=== PATIENT | male | born 1970 | race Caucasian/White ===

== ENCOUNTER 2020-09-15 07:37 | Outpatient (CLI) | payer BC, SELFPAY ==
--- NOTE | 2020-11-03 10:32 | WPDHOMESLEEP ---
Sleep Study - Home Unattended Date of Study: 09/15/20 Ordering Provider: Kinga Hart PA-C Interpreting Physician: Mckenna Krishnamurthy MD Home Sleep Study Type: Apnea Link Air Height: 1.88 m Weight: 145.15 kg Body Mass Index: 41.1 Neck Circumference (inches): 19.5 [place]: 14 Reason for Sleep Study history of sleep apnea Sleep History Burt Barrera is a 49 year-old man who has a history of obstructive sleep apnea. His CPAP broke so he is currently not using it. In addition he has lost 50 lb. Is been many years since he had his initial sleep study so he needs to be re-evaluated. difficulty falling asleep at night, he wakes during the night and he has excessive daytime sleepiness. He frequently snores as frequently loud enough that others complain about it. He occasionally awakens at night with heartburn, belching or coughing. He rarely awakens from sleep feeling short of breath. He rarely has trouble sleeping with a cold, rarely wakes up gasping for breath at night. He occasionally has breathing problems at night observed by others. He occasionally sweats excessively at night. He rarely notices his heart pounding or beating irregularly at night. He occasionally falls asleep during the day, occasionally involuntarily, rarely while driving. He does not fall asleep while exerting physical effort. He does not have loss of muscle tone with strong emotion. He occasionally has daytime difficulties due to excessive sleepiness. He does not feel paralyzed on waking or falling asleep. He occasionally has vivid dreamlike scenes upon awakening or falling asleep. He rarely feels afraid to go to sleep. He rarely has nightmares. He occasionally remembers his dreams. He occasionally has racing thoughts. He rarely has feelings of sadness or depression. He occasionally feels anxious. He frequently has muscular tension, occasionally notices parts of his body jerking rarely kicks at night. He frequently has crawling and aching feelings in his legs and frequently has leg pain during the night. He rarely has morning jaw pain. He frequently grinds his teeth during sleep, frequently is bothered by pain during the day, frequently is awakened by pain at night, frequently wakes up feeling stiff in the morning with sore achy muscles and pain in the neck and spine. He has rarely has morning headaches. He has dizziness, fatigue, and concentration difficulties. Normal bedtime during the week is between 8:00 and 9:00 a.m., falling asleep sometimes immediately and every once in a while taking longer. He typically wakes 1-2 times during sleep, usually to go to the bathroom. He stays awake on average 10-15 minutes. He wakes between 3:00 to 4:00 p.m.. On weekends he goes to bed at the same time 8-9 p.m. but wakes later, 5-6 a.m.. He stays in bed only a few minutes. His sleep habits are different on weekends because he works midnights and he tries to revert back to have a normal life on the weekends. he does take naps. A short nap 10-15 minutes may be refreshing. He rarely feels refreshed when he wakes. He feels better in the evening compared to other times of day. Habits: Never smoked tobacco. Caffeine 1-2 cans per day. Alcohol 1-2 per month. No recreational drugs. [facility] Past Medical History Medical History (Updated 11/03/20 @ 10:59 by Mckenna Krishnamurthy MD) Bulging discs L4-L5 Hypercholesterolemia Hypertension Lower back injury 1998 Obstructive sleep apnea Type 2 diabetes mellitus with hyperglycemia Ventral hernia recurrent incisional hernia repair 06/11/2009, 05/27/2010, 02/03/2011 Surgical History Surgical History (Updated 11/03/20 @ 10:58 by Mckenna Krishnamurthy MD) History of ankle surgery Right ankle 1988 Left ankle 2001 History of appendectomy 1992 History of cervical spinal surgery C5-C6 anterior diskectomy and fusion 04/08/2020 History of colon surgery sigmoid resection 09/16/2008 Status post cholecystectomy 1992 Family H
[2020-11-03 11:15] VITALS: BMI 41.1
== END 2020-09-15 07:38 | disposition home or self-care (01) ==
LOC: ANHCSM 07:38
PROVIDERS: PCP Family Medicine; Visit Provider Physician Assistant
DX: G47.33 Obstructive sleep apnea (adult) (pediatric) (principal)
CPT/HCPCS: 95806

== ENCOUNTER 2020-09-23 12:50 | Outpatient (RCR) | payer BC, SELFPAY | END 2020-12-08 09:18 | disposition home or self-care (01) | LOC: ANHDMC 12:50 | PROVIDERS: PCP Family Medicine; Visit Provider Physician Assistant | DX: E11.65 Type 2 diabetes mellitus with hyperglycemia (principal); Z71.89 Other specified counseling | CPT/HCPCS: G0108 ==

== ENCOUNTER 2020-11-24 07:06 | Emergency (ER) | payer BC, SELFPAY ==
[2020-11-24] VITALS (32 sets, daily range): BP systolic 139–174; BP diastolic 89–110; PULSE 85–98; RESP 11–30; TEMP 36.4; O2SAT 95–99
--- NOTE | ~2020-11-24 | XR_ITS ---
EXAMINATION: XR chest 2V DATE: 11/24/2020 08:05 INDICATION: Shortness of breath. TECHNIQUE: Frontal and lateral views of the chest were obtained. COMPARISON: Chest 2 views 06/04/2019 FINDINGS: The chest demonstrates clear lungs without pneumonia, pleural effusion, or pneumothorax. Th e heart size is normal. There are changes of anterior fusion procedure in cervical spine. Surgical cl ips in the right upper quadrant are likely from cholecystectomy. IMPRESSION: 1. No acute cardiopulmonary disease. Reviewed, dictated and finalized at location A. CRITIC
--- NOTE | 2020-11-24 07:28 | ECG_ITS ---
Measurements Intervals [place] Rate: 96 P: 20 DE: 133 QRS: 10 QRSD: 132 T: 30 QT: 369 QTc: 468 Interpretive Statements SINUS RHYTHM VENTRICULAR PREMATURE COMPLEXES POSSIBLE LEFT ATRIAL ENLARGEMENT INCOMPLETE LEFT BUNDLE BRANCH BLOCK CONSIDER INFERIOR INFARCT, AGE INDETERMINATE ABNORMAL ECG Electronically Signed On 11-24-2020 7:56:56 BUYING INTERN by Carlo Lozada D.O.
--- NOTE | 2020-11-24 07:34 | ED.DIZZY ---
HPI - Dizziness General Chief Complaint: Dizziness Stated Complaint: sob, dizziness Time Seen by Provider: 11/24/20 07:16 Source: RN notes reviewed History of Present Illness HPI Narrative: Patient presents to emergency department from home for dizziness. Patient states that he had been working all night and been feeling fine states that he was driving home when again to feel dizzy as well as numbness around his lips his heart racing and shortness of breath. States he drove to the emergency department symptoms improved but then began to recur again and he came in to the emergency department for further evaluation he denies any fevers or chills vision changes chest pain abdominal pain nausea vomiting numbness or tingling of the extremities or any other symptoms. States he has been under increased stress at both work as well as home he denies any other symptoms at this time Related Data Allergies Allergy/AdvReac Type Severity Reaction Status Date / Time No Known Allergies Allergy Unknown Verified 11/24/20 07:21 Review of Systems Review of Systems: Narrative: Gen.: Denies fevers or chills Eyes: Denies eye pain or visual change ENT: Denies congestion Respiratory: Reports shortness of breath CV: Denies chest pain reports palpitations GI: Denies abdominal pain nausea, emesis or diarrhea denies burning, urgency, frequency or hematuria Musculoskeletal: Denies back pain or muscle pain Neuro: Denies tingling, weakness or focal weakness reports numbness around the lips and dizziness Skin: Denies rash Except as documented, all other systems reviewed and negative PMFSH Past Medical History Medical History Bulging discs L4-L5 Hypercholesterolemia Hypertension Lower back injury 1998 Obstructive sleep apnea Type 2 diabetes mellitus with hyperglycemia Ventral hernia recurrent incisional hernia repair 06/11/2009, 05/27/2010, 02/03/2011 Surgical History Surgical History (Updated 11/03/20 @ 10:58 by Mckenna Krishnamurthy MD) History of ankle surgery Right ankle 1987 Left ankle 2001 History of appendectomy 1992 History of cervical spinal surgery C5-C6 anterior diskectomy and fusion 04/08/2020 History of colon surgery sigmoid resection 09/16/2008 Status post cholecystectomy 1992 Family History Family History Other Diabetes mellitus Family history of alcoholism Family history of arthritis Family history of cardiovascular disease Family history of drug dependence Family history of hearing loss Family history of kidney disease Family history of malignant neoplasm Family history of obesity Hypertension Social History Social History (Updated 11/03/20 @ 11:00 by Mckenna Krishnamurthy MD) Social History: lives at home with his , works midnights. Smoking status: Never smoker Alcohol intake: current Drinks per week: 2 Substance use: never Gender identity (if verbalized by the patient): Male Exam Narrative: Exam Narrative: APPEARANCE: No acute distress, nontoxic, resting in bed EYES: EOMI, PERRL HEENT: Normocephalic, atraumatic, OMM RESPIRATORY: No respiratory distress Clear to auscultation bilaterally with no rhonchi wheezing or rales. CARDIOVASCULAR: Regular rate and rhythm without murmurs rubs or gallops. ABDOMINAL: Soft, nontender, nondistended, no rebound or guarding MUSCULOSKELETAl: Moves all extremities. No clubbing, cyanosis or edema. NEURO: Awake and alertx 4. Following commands, speech normal, no focal deficits muscle strength 5 out of 5 bilateral upper and lower extremities SKIN:: Warm, dry. No rashes lesions or abrasions PSYCHIATRIC: Normal affect/mood, Course Course Emergency Course: Patient given Ativan in ED symptoms are resolved at this time Discussed with patient results of workup and diagnosis. Discussed need for follow-up with primary care, proper use of m
[2020-11-24 07:43] LABS: Glucose Point of Care 325 (65-105)
[2020-11-24 08:12] LABS: Basophils Percent Auto 0.7 % (0.2-1.2); Eosinophils Absolute Auto 0.1 K/mm3 (0-0.3); Eosinophils Percent Auto 2.4 % (0-4.4); Hematocrit 45.7 % (42.0-52.0); Hemoglobin 16.1 g/dL (14.0-18.0); Immature Granulocyte Absolute 0.04 K/mm3 (0.00-0.031); Immature Granulocyte Percent A 0.7 % (0-0.5); Lymphocytes Absolute Auto 1.54 K/mm3 (0.9-3.2); Lymphocytes Percent Auto 28.2 % (18.3-44.2); Mean Corpuscular HGB Conc 35.2 g/dl (32-36); Mean Corpuscular Hemoglobin 28.8 pg (26-34); Mean Corpuscular Volume 81.8 fl (80-100); Mean Platelet Volume 10.9 fl (7.4-10.4); Monocytes Absolute Auto 0.4 K/mm3 (0.1-0.6); Monocytes Percent Auto 6.4 % (2.6-8.5); Neutrophils Absolute Auto 3.4 K/mm3 (1.3-6.7); Neutrophils Percent Auto 61.6 % (45.5-73.1); Platelet Count Result 151 k/mm3 (150-375); Red Blood Count 5.59 M/mm3 (4.6-6.20); Red Cell Distribution Width 13.9 % (11.5-14.5); White Blood Count 5.5 K/mm3 (4.5-10.0)
[2020-11-24 08:22] LABS: Prothrombin Time 13.5 Seconds (11.1-14.7)
[2020-11-24] MEDS: LORazepam INJ (*CRX) 2 MG/ML VIAL 0.5 MG IV PUSH (08:46)
[2020-11-24] MEDS: SODIUM CHLORIDE 0.9% IV 1,000 ML 999 ML IV CONT (08:46)
[2020-11-24 09:19] LABS: Anion Gap 12 mmol/L (8-16); Blood Urea Nitrogen 14 mg/dL (9-20); Carbon Dioxide 22 mmol/L (22-30); Chloride 105 mmol/L (98-107); Estimated CRCL calculation 168 ml/min; Estimated Glomerular Filt Rate > 60; Glucose 331 mg/dL (75-110); Potassium 4.2 mmol/L (3.4-5.0); Sodium 139 mmol/L (137-145)
[2020-11-24 09:30] LABS: Troponin I < 0.012 ng/mL (0.000-0.034)
[2020-11-24 11:41] LABS: Troponin I < 0.012 ng/mL (0.000-0.034)
== END 2020-11-24 12:03 | disposition home or self-care (01) ==
PROVIDERS: Emergency Provider Emergency Medicine; PCP Family Medicine
DX: R42 Dizziness and giddiness (principal); R00.2 Palpitations; F41.9 Anxiety disorder, unspecified; E78.00 Pure hypercholesterolemia, unspecified; I10 Essential (primary) hypertension; G47.33 Obstructive sleep apnea (adult) (pediatric); E11.9 Type 2 diabetes mellitus without complications; Z98.1 Arthrodesis status; Z90.49 Acquired absence of other specified parts of digestive tract; I49.3 Ventricular premature depolarization; I44.7 Left bundle-branch block, unspecified; R94.31 Abnormal electrocardiogram [ECG] [EKG]
CPT/HCPCS: 36415; 71046; 80048; 82948; 84484; 85025; 85610; 85730; 93005; 96374; 96375; 99284; J2060; J7030

== ENCOUNTER 2021-04-20 07:11 | Emergency (ER) | payer BC, SELFPAY ==
[2021-04-20] VITALS (17 sets, daily range): BP systolic 129–164; BP diastolic 73–98; PULSE 84–99; RESP 14–24; TEMP 36.7; O2SAT 89–98
--- NOTE | ~2021-04-20 | XR_ITS ---
EXAMINATION: XR chest 2V DATE: 04/20/2021 07:47 INDICATION: Chest pain TECHNIQUE: PA and lateral views of the chest are obtained. COMPARISON: 11/24/2020 FINDINGS: The lungs are free of acute opacities. There is no pleural effusion or pneumothorax. The ca rdiomediastinal silhouette is normal. There is mild thoracic spondylosis. Cholecystectomy clips are n oted. IMPRESSION: 1. No acute cardiopulmonary abnormality. Reviewed, dictated and finalized at location A.
--- NOTE | 2021-04-20 07:34 | ECG_ITS ---
Measurements Intervals [place] Rate: 90 P: 18 [place]: 152 QRS: 5 QRSD: 132 T: 39 QT: 390 QTc: 479 Interpretive Statements SINUS RHYTHM POSSIBLE LEFT ATRIAL ENLARGEMENT INTRAVENTRICULAR CONDUCTION DELAY CONSIDER INFERIOR INFARCT, AGE INDETERMINATE ABNORMAL ECG Electronically Signed On 04-20-2021 7:39:20 CDT by Carlo Lozada D.O.
[2021-04-20 07:45] LABS: Basophils Absolute Auto 0.1 K/mm3 (0.0-0.1); Basophils Percent Auto 1.2 % (0.2-1.2); Eosinophils Absolute Auto 0.1 K/mm3 (0-0.3); Eosinophils Percent Auto 2.5 % (0-4.4); Hematocrit 47.4 % (42.0-52.0); Hemoglobin 16.8 g/dL (14.0-18.0); Immature Granulocyte Absolute 0.02 K/mm3 (0.00-0.031); Immature Granulocyte Percent A 0.4 % (0-0.5); Lymphocytes Absolute Auto 1.86 K/mm3 (0.9-3.2); Lymphocytes Percent Auto 32.9 % (18.3-44.2); Mean Corpuscular HGB Conc 35.4 g/dl (32-36); Mean Corpuscular Hemoglobin 29.2 pg (26-34); Mean Corpuscular Volume 82.3 fl (80-100); Mean Platelet Volume 11.4 fl (7.4-10.4); Monocytes Absolute Auto 0.3 K/mm3 (0.1-0.6); Monocytes Percent Auto 5.5 % (2.6-8.5); Neutrophils Absolute Auto 3.3 K/mm3 (1.3-6.7); Neutrophils Percent Auto 57.5 % (45.5-73.1); Platelet Count Result 149 k/mm3 (150-375); Red Blood Count 5.76 M/mm3 (4.6-6.20); Red Cell Distribution Width 13.5 % (11.5-14.5); White Blood Count 5.7 K/mm3 (4.5-10.0)
[2021-04-20 08:03] LABS: Anion Gap 15 mmol/L (8-16); Blood Urea Nitrogen 16 mg/dL (9-20); Calcium 9.3 mg/dL (8.4-10.2); Carbon Dioxide 20 mmol/L (22-30); Chloride 97 mmol/L (98-107); Estimated Glomerular Filt Rate > 60; Glucose 423 mg/dL (75-110); Potassium 4.3 mmol/L (3.4-5.0); Sodium 132 mmol/L (137-145)
[2021-04-20] MEDS: ASPIRIN 81 MG CHEWABLE TABLET 324 MG PO (08:05)
[2021-04-20 08:06] LABS: Prothrombin Time 12.8 Seconds (11.1-14.7); Troponin I 0.015 ng/mL (0.000-0.034)
[2021-04-20 08:07] LABS: Partial Thromboplastin Time 29.8 SECONDS (22.3-36.8)
--- NOTE | 2021-04-20 08:09 | ED.CHESTPAIN ---
HPI - Chest Pain General Chief Complaint: Anxiety Stated Complaint: SOB Time Seen by Provider: 04/20/21 07:34 Source: patient Mode of arrival: ambulatory Limitations: no limitations History of Present Illness HPI narrative: Patient is a 50-year-old male complaining of I do not know if I am having an anxiety attack described as chest pain, left upper chest, left shoulder, 4 out of 10, described as discomfort, accompanied by cannot take a deep breath started prior to arrival after getting off work this morning while driving, states he worked the whole night. Patient denies any abdominal pain, nausea, vomiting, diaphoresis, fever or chills Related Data Allergies Allergy/AdvReac Type Severity Reaction Status Date / Time No Known Allergies Allergy Unknown Verified 04/20/21 07:23 Review of Systems Review of Systems: All systems reviewed & are unremarkable except as noted in HPI and below Constitutional: Constitutional: Denies body ache(s), Denies chills, Denies excessive sweating, Denies fatigue, Denies fever(s), Denies headache(s), Denies lethargy, Denies malaise, Denies weakness and Denies weight loss Eyes: Eyes: Denies blurry vision, Denies change in vision and Denies loss of vision ENT: Denies dizziness, Denies ear discharge, Denies headache(s), Denies lip swelling, Denies epistaxis, Denies nasal congestion, Denies neck pain, Denies throat swelling and Denies tongue swelling Cardiovascular: Cardiovascular: Denies diaphoresis, Denies rapid heart rate, Denies edema, Denies irregular heart rhythm, Denies lightheadedness, Denies palpitations and Denies dyspnea on exertion Respiratory: Respiratory: Denies chest congestion, Denies cough, Denies hemoptysis and Denies dyspnea on exertion Gastrointestinal: Gastrointestinal: Denies abdominal pain, Denies melena, Denies hematochezia, Denies diarrhea, Denies nausea, Denies vomiting and Denies hematemesis Musculoskeletal: Musculoskeletal: Denies abnormal gait, Denies deformity, Denies joint swelling, Denies limited range of motion, Denies neck pain and Denies numbness Neurologic: Denies Abnormal speech present, Denies abnormal gait, Denies confusion, Denies dizziness, Denies headache(s), Denies focal weakness, Denies loss of vision, Denies numbness, Denies Other visual disturbances, Denies Sensory deficit (Neuro) and Denies weakness Psychiatric: Psychiatric: Denies confusion, Denies depression, Denies auditory hallucinations, Denies homicidal ideation and Denies suicidal ideation Endocrine: Endocrine: Denies cold intolerance, Denies excessive sweating, Denies fatigue, Denies heat intolerance and Denies palpitations Hematologic/Lymphatic: Hematologic/Lymphatic: Denies easy bleeding and Denies easy bruising Allergic/Immunologic: Allergic/Immunologic: Denies lip swelling, Denies throat swelling and Denies tongue swelling PMFSH Past Medical History Medical History Bulging discs L4-L5 Hypercholesterolemia Hypertension Lower back injury 1998 Obstructive sleep apnea Type 2 diabetes mellitus with hyperglycemia Ventral hernia recurrent incisional hernia repair 06/11/2009, 05/27/2010, 02/03/2011 Surgical History Surgical History History of ankle surgery Right ankle 1988 Left ankle 2001 History of appendectomy 1992 History of cervical spinal surgery C5-C6 anterior diskectomy and fusion 04/08/2020 History of colon surgery sigmoid resection 09/16/2008 Status post cholecystectomy 1992 Family History Family History Other Diabetes mellitus Family history of alcoholism Family history of arthritis Family history of cardiovascular disease Family history of drug dependence Family history of hearing loss Family history of kidney disease Family history of malignant neoplasm Family history of obesity Hypertension
[2021-04-20] MEDS: MORPHINE SULFATE (*CRX) 2 MG/ML INJ IV PUSH (09:09)
[2021-04-20] MEDS: PROMETHAZINE HCL 25 MG/ML AMPUL 12.5 MG IV PUSH (09:09)
[2021-04-20] MEDS: INSULIN HUMAN REGULAR (*BKC) 100 UNITS/ML 10 UNITS SUB-Q (10:01)
[2021-04-20] MEDS: SODIUM CHLORIDE 0.9% IV 1,000 ML 999 ML IV CONT (10:02)
[2021-04-20 10:27] LABS: Glucose Point of Care 346 mg/dl (65-105)
--- NOTE | 2021-04-30 15:52 | PC.NURSE ---
LATE ENTRY This note is being entered to document information to the patient's record. The following information was omitted on [04/20/21], by [eric], NS 1 liter stopped @ 1025 on 04/20/21.
== END 2021-04-20 10:25 | disposition left against medical advice (07) ==
PROVIDERS: Internal Medicine; Emergency Provider Emergency Medicine; PCP Family Medicine
DX: R07.9 Chest pain, unspecified (principal); E78.00 Pure hypercholesterolemia, unspecified; I10 Essential (primary) hypertension; G47.33 Obstructive sleep apnea (adult) (pediatric); E11.65 Type 2 diabetes mellitus with hyperglycemia; Z90.49 Acquired absence of other specified parts of digestive tract; R94.31 Abnormal electrocardiogram [ECG] [EKG]; I45.9 Conduction disorder, unspecified
CPT/HCPCS: 36415; 71046; 80048; 82948; 84484; 85025; 85610; 85730; 93005; 96374; 96375; 99284; A9270; J1815; J2270; J2550; J7030